=== PATIENT | female | born 1940 | race Caucasian/White ===

== ENCOUNTER 2017-10-25 13:44 | Emergency (ER) | payer MEDICARE, MEDICAID ==
[~2017-10-25] VITALS: Ht 5200 cm; Wt 68.7 kg
[2017-10-25 16:03] VITALS: BP 170/94
== END 2017-10-25 16:04 | disposition home or self-care (01) ==
LOC: ER 13:45
DX: R60.0 Localized edema (principal); G89.29 Other chronic pain; Z88.2 Allergy status to sulfonamides
CPT/HCPCS: 93971; 99284